=== PATIENT | female | born 1960 | race Caucasian/White ===

== ENCOUNTER → 2019-04-21 | Outpatient (CLI) | payer BC | LOC: WI 11:31 | PROVIDERS: ATTEND Physician Assistant | DX: Z12.31 Encounter for screening mammogram for malignant neoplasm of breast (principal) | CPT/HCPCS: 77067 ==

== ENCOUNTER 2019-05-09 21:46 | Emergency (ER) | payer OTHER, BC ==
[2019-05-09] MEDS ORDERED: IBUPROFEN 800 MG TABLET PO ONE (22:30)
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
[2019-05-09 23:42] LABS: ANION GAP 12 (5-19); BLOOD UREA NITROGEN 14 mg/dL (7-20); CARBON DIOXIDE 22 mmol/L (22-30); CHLORIDE 105 mmol/L (98-107); GLUCOSE 125 mg/dL (75-110); POTASSIUM 4.6 mmol/L (3.6-5.0)
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
[2019-05-10] MEDS ORDERED: HYDROCODONE/ACETAMINOPHEN 5-325 MG (6 TAB/ER DISP) PO PRN (02:53)
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
[2019-05-10 03:13] VITALS: BP 138/88
== END 2019-05-10 03:07 | disposition home or self-care (01) ==
LOC: ER 21:46
DX: T71.193A Asphyxiation due to mechanical threat to breathing due to other causes, assault, initial encounter (principal); S19.9XXA Unspecified injury of neck, initial encounter; Y04.2XXA Assault by strike against or bumped into by another person, initial encounter; Z90.710 Acquired absence of both cervix and uterus
CPT/HCPCS: 36415; 70491; 80048; 99284